=== PATIENT | male | born 1965 | race Two or more races ===

== ENCOUNTER 2021-09-02 01:50 | Emergency (ER) | payer MEDICAID ==
[~2021-09-02] VITALS: Ht 185.4 cm; Wt 95.0 kg
[2021-09-02] MEDS ORDERED: KETOROLAC 60MG/2ML VIAL IM STA (02:50)
[2021-09-02 03:13] VITALS: BP 115/64
[2021-09-02 03:20] LABS: BASOPHILS % 0.9 % (0.0-2.0); HEMATOCRIT. 37.9 % (42.0-52.0); HEMOGLOBIN. 12.6 g/dL (14.0-18.0); LYMPHOCYTES % 11.8 % (20.0-50.0); MEAN CORPUSCULAR HEMOGLOBIN 33.1 pg (28.0-32.0); MEAN CORPUSCULAR VOLUME 99.5 fL (80.0-94.0); MEAN PLATELET VOLUME 9.1 fl (7.4-10.4); MONOCYTES % 8.1 % (2.0-8.0); NEUTROPHILS % 77.2 % (40.0-76.0); PLATELET 204 x1000/uL (130-400); RED BLOOD CELL COUNT 3.81 mill/uL (4.7-6.1); RED CELL DISTRIBUTION WIDTH 14.4 % (11.6-14.6)
[2021-09-02 03:43] LABS: CHLORIDE 107 mEq/L (98-107)
[2021-09-02 03:52] LABS: ETHANOL BLOOD < 10 mg/dL
[2021-09-02] MEDS ORDERED: POTASSIUM CHLORIDE 20MEQ TABLET SR PO NR (06:00)
== END 2021-09-02 06:10 | disposition home or self-care (01) ==
LOC: ER 01:50
DX: K40.20 Bilateral inguinal hernia, without obstruction or gangrene, not specified as recurrent (principal); I10 Essential (primary) hypertension; Z86.39 Personal history of other endocrine, nutritional and metabolic disease; Z98.890 Other specified postprocedural states
CPT/HCPCS: 36415; 74176; 80053; 80320; 83690; 85025; 96372; 99284; J1885; G0480

== ENCOUNTER 2024-03-07 18:44 | Emergency (ER) | payer OTHER ==
[~2024-03-07] VITALS: Ht 185.4 cm; Wt 95.5 kg
[~2024-03-07 18:44] MED LIST: AMLO10TA80 PO; AMOX1TAB16 PO; ASPI-1497 MT; ATOR10TA MT; DOCU-405 PO; ENAL-79 PO; FAMO20TA8 PO; HYDR25TA78 PO; IBUP-2030 PO; ONDA-239 SL; PROP50TA3 PO; TOPUD PO
[2024-03-07 18:48] VITALS: O2SAT 99
[2024-03-07 21:20] VITALS: BP 130/73; PULSE 92; RESP 20; TEMP 36.55848; O2SAT 100
[2024-03-08 00:26] LABS: BASOPHILS % 0.7 % (0.0-2.0); DIFFERENTIAL COMMENT 0; EOSINOPHILS % 0.2 % (0.0-5.0); HEMATOCRIT. 43.3 % (42.0-52.0); HEMOGLOBIN. 14.6 g/dL (14.0-18.0); LYMPHOCYTES % 26.7 % (20.0-50.0); MEAN CORPUSCULAR HEMOGLOBIN 34.8 pg (28.0-32.0); MEAN CORPUSCULAR HGB CONC 33.7 g/dL (31.0-37.0); MEAN CORPUSCULAR VOLUME 103.2 fL (80.0-94.0); MEAN PLATELET VOLUME 8.7 fl (7.4-10.4); MONOCYTES % 6.4 % (2.0-8.0); PLATELET 239 x1000/uL (130-400); RED CELL DISTRIBUTION WIDTH 14.4 % (11.6-14.6); WHITE BLOOD COUNT 5.9 x1000/uL (4.5-11.0)
[2024-03-08 00:28] LABS: CHLORIDE 107 mEq/L (98-107); POTASSIUM 3.2 mEq/L (3.5-5.1); SODIUM 140 mEq/L (136-145)
[2024-03-08 00:29] LABS: CARBON DIOXIDE 23 mEq/L (21-32)
[2024-03-08 00:30] LABS: CALCIUM 10.4 mg/dL (8.7-10.4)
[2024-03-08 00:34] LABS: GLUCOSE 111 mg/dL (70-105)
[2024-03-08 00:35] LABS: TROPONIN I HIGH SENSITIVITY 13 ng/L (3.0-53); UREA NITROGEN BLOOD 14 mg/dL (9-23)
[2024-03-08] MEDS ORDERED: ONDANSETRON 4MG/5ML UDC PO ONE (01:15)
[2024-03-08] MEDS ORDERED: KETOROLAC 15MG/ML VIAL IM ONE (01:15)
[2024-03-08] MEDS ORDERED: NAPR-1176 MT (01:22)
[2024-03-08] MEDS ORDERED: ONDA4TAB50 MT (01:22)
== END 2024-03-08 02:11 | disposition home or self-care (01) ==
LOC: ER 18:44
DX: B34.9 Viral infection, unspecified (principal); I10 Essential (primary) hypertension; Z79.1 Long term (current) use of non-steroidal anti-inflammatories (NSAID); Z79.82 Long term (current) use of aspirin; Z79.899 Other long term (current) drug therapy; Z88.5 Allergy status to narcotic agent
CPT/HCPCS: 36415; 71045; 80048; 84484; 85025; 99283; 99284